=== PATIENT | female | born 1930 | race Caucasian/White ===

== ENCOUNTER 2017-03-20 16:20 | Inpatient (IN) | payer OTHER ==
[~2017-03-20] VITALS: Ht 165.1 cm; Wt 55.8 kg
[2017-03-20 16:20] VITALS: BP_SYST 111
[~2017-03-20 16:20] MED LIST: ACET-2165 PO; ASPI325T2 PO; DONE10TA44 PO; FAMO40TA7 PO; LISI-217 PO; MAGN400O4 PO; TELM80TA4 PO; [UNRECOGNIZED DRUG - CODE] PO
[2017-03-20] MEDS ORDERED: NACL 0.9% 1,000 ML IV ONE ×2 (16:30→18:15)
[2017-03-20] MEDS ORDERED: METOCLOPRAMIDE HCL 10 MG/2 ML VIAL IVP ONE (16:30)
[2017-03-20 17:47] LABS: BASOPHILS % (AUTO) 0.1 % (0.0-2.0); EOSINOPHILS % (AUTO) 0.2 % (0.0-4.0); HEMATOCRIT 31.8 % (36-48); HEMOGLOBIN 10.7 g/dL (12.0-16.0); LYMPHOCYTES # (AUTO) 1.3 K/uL (1.0-5.5); LYMPHOCYTES % (AUTO) 6.7 % (20.5-51.5); MEAN CORPUSCULAR HEMOGLOBIN 32 pg (27-31); MEAN CORPUSCULAR HGB CONC 34 % (32-36); MEAN CORPUSCULAR VOLUME 94 fL (79.0-98.0); MONOCYTES # (AUTO) 0.2 K/uL (0.0-1.0); MONOCYTES % (AUTO) 1.2 % (1.7-9.3); NEUTROPHILS # (AUTO) 18.1 K/uL (1.8-7.7); NEUTROPHILS % (AUTO) 91.8 % (40.0-70.0); PLATELET COUNT (AUTO) 256 K/uL (130-430); RED BLOOD CELL COUNT(AUTO) 3.37 MIL/uL (4.2-6.2); RED CELL DISTRIBUTION WIDTH 12.4 % (9.0-15.0); WHITE BLOOD COUNT (AUTO) 19.6 K/uL (4.8-10.8)
[2017-03-20 17:58] LABS: ANION GAP 8 (5-15); CALCIUM 8.3 mg/dL (8.4-11.0); CHLORIDE 112 mmol/L (98-107); CREATININE 1.32 mg/dL (0.55-1.30); GLUCOSE 163 mg/dL (70-99); SODIUM SERUM 143 mmol/L (136-145); UREA NITROGEN, BLOOD 32 mg/dL (8-21)
[2017-03-20 18:03] LABS: ALANINE AMINOTRANSFERASE 56 U/L (12-78); ASPARTATE AMINOTRANSFERASE 124 U/L (10-37); TOTAL BILIRUBIN 0.7 mg/dL (0.0-1.0)
[2017-03-20] MEDS ORDERED: PIPERACILLIN/TAZO 3.375 GM in NS 50 ML IV ONE (18:15)
[2017-03-20] MEDS ORDERED: VANCOMYCIN HCL 1,000 MG in NS 250 ML IV ONE (18:15)
[2017-03-20] MEDS ORDERED: PIPERACILLIN/TAZOBACTAM 3.375 GM/VIAL (ZOSYN) IV ONE ×2 (18:39→21:54)
[2017-03-20] MEDS ORDERED: VANCOMYCIN HCL 1000 MG/VIAL IV ONE (18:39)
[2017-03-20 18:42] LABS: BILIRUBIN,URINE NEGATIVE (NEGATIVE); BLOOD, URINE 2+ (NEGATIVE); CLARITY/URINE CLOUDY (CLEAR); COLOR,URINE YELLOW (YELLOW); GLUCOSE,URINE NEGATIVE (NEGATIVE); KETONES,URINE NEGATIVE (NEGATIVE); LEUKOCYTE ESTERASE ,URINE 3+ (NEGATIVE); NITRITE, URINE NEGATIVE (NEGATIVE); PH,URINE 5.5 (5.0-8.0); PROTEIN URINE 2+ (NEGATIVE); UROBILINOGEN,URINE 0.2 (0.2-1.0)
[2017-03-20 19:07] LABS: BACTERIA,URINE MANY /HPF (None Seen); WBC,URINE >100 /HPF (0-3)
[2017-03-20 19:08] LABS: MUCUS,URINE None Seen /LPF (None Seen)
[2017-03-20 19:47] VITALS: BP_SYST 155
[2017-03-20] MEDS ORDERED: ACETAMINOPHEN 325 MG TABLET PO PRN (21:00)
[2017-03-20] MEDS: PIPERACILLIN/TAZO 3.375/DEX-IS 50 ML IV SCH (21:00)
[2017-03-20] MEDS: DONEPEZIL HCL 5 MG TABLET (ARICEPT) PO SCH (22:00)
[2017-03-20] MEDS: FAMOTIDINE 20 MG TABLET PO SCH (22:00)
[2017-03-20] MEDS: ASPIRIN 325 MG TABLET PO SCH (22:00)
[2017-03-20] MEDS: NACL 0.9% 1,000 ML IV SCH (22:37)
[2017-03-21] VITALS (7 sets, daily range): BP systolic 97–169
[2017-03-21] MEDS: PIPERACILLIN/TAZO 3.375/DEX-IS 50 ML IV SCH ×4 (00:12→18:02)
[2017-03-21] MEDS ORDERED: PIPERACILLIN/TAZOBACTAM 3.375 GM/VIAL (ZOSYN) IV ONE (01:57)
[2017-03-21] MEDS ORDERED: TELMISARTAN 80 MG TABLET PO SCH (09:00)
[2017-03-21] MEDS: LOSARTAN POTASSIUM 50 MG TABLET (COZAAR) PO SCH (09:00)
[2017-03-21] MEDS: NACL 0.9% 1,000 ML IV SCH (11:18)
[2017-03-21] MEDS: DONEPEZIL HCL 5 MG TABLET (ARICEPT) PO SCH (21:16)
[2017-03-21] MEDS: FAMOTIDINE 20 MG TABLET PO SCH (21:16)
[2017-03-21] MEDS: ASPIRIN 325 MG TABLET PO SCH (21:16)
[2017-03-22] VITALS (7 sets, daily range): BP systolic 142–185
[2017-03-22] MEDS: PIPERACILLIN/TAZO 3.375/DEX-IS 50 ML IV SCH ×4 (01:15→18:33)
[2017-03-22] MEDS: NACL 0.9% 1,000 ML IV SCH ×2 (01:36→06:51)
[2017-03-22 06:28] LABS: BASOPHILS % (AUTO) 0.3 % (0.0-2.0); EOSINOPHILS # (AUTO) 0.2 K/uL (0.0-0.4); EOSINOPHILS % (AUTO) 2.1 % (0.0-4.0); HEMATOCRIT 30.4 % (36-48); HEMOGLOBIN 10.1 g/dL (12.0-16.0); LYMPHOCYTES # (AUTO) 1.5 K/uL (1.0-5.5); LYMPHOCYTES % (AUTO) 15.3 % (20.5-51.5); MEAN CORPUSCULAR HEMOGLOBIN 32 pg (27-31); MEAN CORPUSCULAR HGB CONC 33 % (32-36); MEAN CORPUSCULAR VOLUME 95 fL (79.0-98.0); MONOCYTES # (AUTO) 0.7 K/uL (0.0-1.0); MONOCYTES % (AUTO) 6.9 % (1.7-9.3); NEUTROPHILS # (AUTO) 7.7 K/uL (1.8-7.7); NEUTROPHILS % (AUTO) 75.4 % (40.0-70.0); PLATELET COUNT (AUTO) 187 K/uL (130-430); RED BLOOD CELL COUNT(AUTO) 3.19 MIL/uL (4.2-6.2); RED CELL DISTRIBUTION WIDTH 12.5 % (9.0-15.0); WHITE BLOOD COUNT (AUTO) 10.1 K/uL (4.8-10.8)
[2017-03-22 06:43] LABS: ALANINE AMINOTRANSFERASE 335 U/L (12-78); ALBUMIN 2.5 g/dL (3.4-4.8); ANION GAP 9 (5-15); ASPARTATE AMINOTRANSFERASE 257 U/L (10-37); CALCIUM 7.4 mg/dL (8.4-11.0); CHLORIDE 110 mmol/L (98-107); CREATININE 1.15 mg/dL (0.55-1.30); GLUCOSE 93 mg/dL (70-99); SODIUM SERUM 144 mmol/L (136-145); UREA NITROGEN, BLOOD 15 mg/dL (8-21)
[2017-03-22 06:49] LABS: POTASSIUM 2.9 mmol/L (3.5-5.1)
[2017-03-22] MEDS ORDERED: POTASSIUM CHLORIDE 40 MEQ in NS 250 ML IV ONE (07:15)
[2017-03-22] MEDS: LOSARTAN POTASSIUM 50 MG TABLET (COZAAR) PO SCH (12:06)
[2017-03-22] MEDS: DONEPEZIL HCL 5 MG TABLET (ARICEPT) PO SCH (21:23)
[2017-03-22] MEDS: FAMOTIDINE 20 MG TABLET PO SCH (21:23)
[2017-03-22] MEDS: ASPIRIN 325 MG TABLET PO SCH (21:23)
[2017-03-22] MEDS ORDERED: ONDANSETRON HCL 4 MG/2 ML VIAL IVP PRN (21:30)
[2017-03-23] VITALS (8 sets, daily range): BP systolic 137–180
[2017-03-23] MEDS: cloNIDine HCL 0.1 MG TABLET PO PRN ×3 (00:08→20:18)
[2017-03-23] MEDS: PIPERACILLIN/TAZO 3.375/DEX-IS 50 ML IV SCH ×3 (00:16→11:45)
[2017-03-23] MEDS: NACL 0.9% 1,000 ML IV SCH ×2 (00:38→16:37)
[2017-03-23] MEDS: LOSARTAN POTASSIUM 50 MG TABLET (COZAAR) PO SCH (08:32)
[2017-03-23] MEDS ORDERED: GLUCOSE 15 GM GEL (in 37.5 GM TUBE) PO PRN ×2 (11:30)
[2017-03-23] MEDS ORDERED: DEXTROSE 50%-WATER 50 ML DISP.SYRIN IVP PRN ×2 (11:30)
[2017-03-23 12:04] LABS: BASOPHILS # (AUTO) 0.2 K/uL (0.0-0.2); BASOPHILS % (AUTO) 1.4 % (0.0-2.0); EOSINOPHILS # (AUTO) 0.2 K/uL (0.0-0.4); EOSINOPHILS % (AUTO) 1.6 % (0.0-4.0); HEMATOCRIT 31.5 % (36-48); HEMOGLOBIN 10.3 g/dL (12.0-16.0); LYMPHOCYTES # (AUTO) 1.5 K/uL (1.0-5.5); LYMPHOCYTES % (AUTO) 13.1 % (20.5-51.5); MEAN CORPUSCULAR HEMOGLOBIN 31 pg (27-31); MEAN CORPUSCULAR HGB CONC 33 % (32-36); MEAN CORPUSCULAR VOLUME 96 fL (79.0-98.0); MONOCYTES # (AUTO) 0.7 K/uL (0.0-1.0); MONOCYTES % (AUTO) 5.9 % (1.7-9.3); NEUTROPHILS # (AUTO) 8.9 K/uL (1.8-7.7); PLATELET COUNT (AUTO) 200 K/uL (130-430); RED CELL DISTRIBUTION WIDTH 12.6 % (9.0-15.0); WHITE BLOOD COUNT (AUTO) 11.5 K/uL (4.8-10.8)
[2017-03-23] MEDS: cefTRIAXone 1 GM in D5W 50 ML IV SCH (18:14)
[2017-03-23] MEDS: DONEPEZIL HCL 5 MG TABLET (ARICEPT) PO SCH (20:16)
[2017-03-23] MEDS: FAMOTIDINE 20 MG TABLET PO SCH (20:16)
[2017-03-23] MEDS: ASPIRIN 325 MG TABLET PO SCH (20:16)
[2017-03-23] MEDS: metroNIDAZOLE 500 mg/NS 100 ML IV SCH (21:30)
[2017-03-23] MEDS ORDERED: metroNIDAZOLE 500 mg/NS 200 ML IV ONE (21:30)
[2017-03-24 04:20] VITALS: BP_SYST 140
[2017-03-24] MEDS: metroNIDAZOLE 500 mg/NS 100 ML IV SCH ×3 (06:01→21:27)
[2017-03-24 07:14] LABS: BASOPHILS # (AUTO) 0.1 K/uL (0.0-0.2); BASOPHILS % (AUTO) 0.6 % (0.0-2.0); EOSINOPHILS # (AUTO) 0.4 K/uL (0.0-0.4); EOSINOPHILS % (AUTO) 5.1 % (0.0-4.0); HEMATOCRIT 28.2 % (36-48); HEMOGLOBIN 9.5 g/dL (12.0-16.0); LYMPHOCYTES # (AUTO) 1.4 K/uL (1.0-5.5); LYMPHOCYTES % (AUTO) 16.8 % (20.5-51.5); MEAN CORPUSCULAR HEMOGLOBIN 32 pg (27-31); MEAN CORPUSCULAR HGB CONC 34 % (32-36); MEAN CORPUSCULAR VOLUME 95 fL (79.0-98.0); MONOCYTES # (AUTO) 0.6 K/uL (0.0-1.0); MONOCYTES % (AUTO) 7.4 % (1.7-9.3); NEUTROPHILS # (AUTO) 6.1 K/uL (1.8-7.7); NEUTROPHILS % (AUTO) 70.1 % (40.0-70.0); PLATELET COUNT (AUTO) 199 K/uL (130-430); RED BLOOD CELL COUNT(AUTO) 2.97 MIL/uL (4.2-6.2); RED CELL DISTRIBUTION WIDTH 12.3 % (9.0-15.0); WHITE BLOOD COUNT (AUTO) 8.6 K/uL (4.8-10.8)
[2017-03-24 07:16] LABS: ALANINE AMINOTRANSFERASE 127 U/L (12-78); ALBUMIN 2.2 g/dL (3.4-4.8); ANION GAP 7 (5-15); ASPARTATE AMINOTRANSFERASE 35 U/L (10-37); CALCIUM 7.6 mg/dL (8.4-11.0); CHLORIDE 117 mmol/L (98-107); CREATININE 0.93 mg/dL (0.55-1.30); GLUCOSE 92 mg/dL (70-99); SODIUM SERUM 146 mmol/L (136-145); TOTAL BILIRUBIN 0.4 mg/dL (0.0-1.0); UREA NITROGEN, BLOOD 7 mg/dL (8-21)
[2017-03-24 07:46] VITALS: BP_SYST 162
[2017-03-24] MEDS: LOSARTAN POTASSIUM 50 MG TABLET (COZAAR) PO SCH (08:03)
[2017-03-24 08:10] LABS: POTASSIUM 2.7 mmol/L (3.5-5.1)
[2017-03-24] MEDS: NACL 0.9% 1,000 ML IV SCH (09:40)
[2017-03-24] MEDS ORDERED: POTASSIUM CHLORIDE 20 MEQ TAB.PRT.SR PO ONE (10:15)
[2017-03-24] MEDS: 0.45% NACL 1,000 ML IV SCH (11:20)
[2017-03-24 12:27] VITALS: BP_SYST 179
[2017-03-24] MEDS: IPRATROPIUM/ALBUTEROL SULFATE 3 ML AMPUL.NEB INH SCH ×3 (15:27→23:13)
[2017-03-24 16:12] VITALS: BP_SYST 179
[2017-03-24 16:25] VITALS: BP_SYST 173
[2017-03-24] MEDS: cefTRIAXone 1 GM in D5W 50 ML IV SCH (17:46)
[2017-03-24 20:00] VITALS: BP_SYST 164
[2017-03-24] MEDS: ASPIRIN 325 MG TABLET PO SCH (20:31)
[2017-03-24] MEDS: DONEPEZIL HCL 5 MG TABLET (ARICEPT) PO SCH (20:31)
[2017-03-24] MEDS: FAMOTIDINE 20 MG TABLET PO SCH (20:31)
[2017-03-24] MEDS: cloNIDine HCL 0.1 MG TABLET PO PRN (20:31)
[2017-03-24] MEDS: INSULIN REGULAR, HUMAN 100 UNITS/ML, 10 ML VIAL (novoLIN R) SUBCUT PRN (20:39)
[2017-03-25 01:02] VITALS: BP_SYST 110
[2017-03-25] MEDS: IPRATROPIUM/ALBUTEROL SULFATE 3 ML AMPUL.NEB INH SCH ×4 (03:00→14:25)
[2017-03-25 04:36] VITALS: BP_SYST 136
[2017-03-25] MEDS: metroNIDAZOLE 500 mg/NS 100 ML IV SCH ×2 (06:33→14:10)
[2017-03-25 06:47] LABS: BASOPHILS % (AUTO) 0.4 % (0.0-2.0); EOSINOPHILS # (AUTO) 0.2 K/uL (0.0-0.4); EOSINOPHILS % (AUTO) 1.6 % (0.0-4.0); HEMATOCRIT 25.8 % (36-48); HEMOGLOBIN 8.8 g/dL (12.0-16.0); LYMPHOCYTES # (AUTO) 1.8 K/uL (1.0-5.5); LYMPHOCYTES % (AUTO) 18.3 % (20.5-51.5); MEAN CORPUSCULAR HEMOGLOBIN 32 pg (27-31); MEAN CORPUSCULAR HGB CONC 34 % (32-36); MEAN CORPUSCULAR VOLUME 95 fL (79.0-98.0); MONOCYTES # (AUTO) 0.8 K/uL (0.0-1.0); MONOCYTES % (AUTO) 7.9 % (1.7-9.3); NEUTROPHILS # (AUTO) 6.9 K/uL (1.8-7.7); NEUTROPHILS % (AUTO) 71.8 % (40.0-70.0); PLATELET COUNT (AUTO) 211 K/uL (130-430); RED BLOOD CELL COUNT(AUTO) 2.73 MIL/uL (4.2-6.2); RED CELL DISTRIBUTION WIDTH 12.5 % (9.0-15.0); WHITE BLOOD COUNT (AUTO) 9.7 K/uL (4.8-10.8)
[2017-03-25 07:00] LABS: ALANINE AMINOTRANSFERASE 91 U/L (12-78); ALBUMIN 2.2 g/dL (3.4-4.8); ANION GAP 8 (5-15); ASPARTATE AMINOTRANSFERASE 21 U/L (10-37); CALCIUM 7.7 mg/dL (8.4-11.0); CHLORIDE 112 mmol/L (98-107); CREATININE 0.85 mg/dL (0.55-1.30); GLUCOSE 128 mg/dL (70-99); SODIUM SERUM 142 mmol/L (136-145); TOTAL BILIRUBIN 0.3 mg/dL (0.0-1.0); UREA NITROGEN, BLOOD 10 mg/dL (8-21)
[2017-03-25 07:16] LABS: POTASSIUM 2.7 mmol/L (3.5-5.1)
[2017-03-25] MEDS ORDERED: POTASSIUM CHLORIDE 60 MEQ in NS 500 ML IV ONE (08:15)
[2017-03-25 08:30] VITALS: BP_SYST 163
[2017-03-25] MEDS ORDERED: amLODIPine BESYLATE 5 MG TABLET PO SCH (09:00)
[2017-03-25] MEDS: LOSARTAN POTASSIUM 50 MG TABLET (COZAAR) PO SCH (10:13)
[2017-03-25] MEDS: 0.45% NACL 1,000 ML IV SCH (10:15)
[2017-03-25 11:35] VITALS: BP_SYST 144
[2017-03-25] MEDS: INSULIN REGULAR, HUMAN 100 UNITS/ML, 10 ML VIAL (novoLIN R) SUBCUT PRN (12:16)
[2017-03-25] MEDS: cloNIDine HCL 0.1 MG TABLET PO PRN (14:18)
[2017-03-25 15:41] VITALS: BP_SYST 147
[2017-03-25 16:22] VITALS: BP_SYST 147
[2017-03-25 17:31] LABS: POTASSIUM 3.9 mmol/L (3.5-5.1)
== END 2017-03-25 18:10 | DRG 871 ==
LOC: SED 16:20 → SMU 18:27
PROVIDERS: ADMIT Internal Medicine Hospice and Palliative Medicine; ATTEND Internal Medicine Hospice and Palliative Medicine
DX: A41.9 Sepsis, unspecified organism (principal); E43 Unspecified severe protein-calorie malnutrition; N17.9 Acute kidney failure, unspecified; J90 Pleural effusion, not elsewhere classified; N39.0 Urinary tract infection, site not specified; F01.50 Vascular dementia, unspecified severity, without behavioral disturbance, psychotic disturbance, mood disturbance, and anxiety; E86.0 Dehydration; I10 Essential (primary) hypertension; E11.9 Type 2 diabetes mellitus without complications; D64.9 Anemia, unspecified; K80.20 Calculus of gallbladder without cholecystitis without obstruction; E87.6 Hypokalemia; I25.10 Atherosclerotic heart disease of native coronary artery without angina pectoris; Z86.73 Personal history of transient ischemic attack (TIA), and cerebral infarction without residual deficits; Z87.440 Personal history of urinary (tract) infections; Z95.5 Presence of coronary angioplasty implant and graft; Z85.828 Personal history of other malignant neoplasm of skin; Z90.49 Acquired absence of other specified parts of digestive tract; Z87.442 Personal history of urinary calculi; Z68.20 Body mass index [BMI] 20.0-20.9, adult
CPT/HCPCS: 36415; 71010; 76700-TC; 78226; 80053; 81000-TC; 82962; 83605; 83735-TC; 84132-TC; 84484; 85025; 87040-TC; 87081; 87086; 87186-TC; 93005; 94640; 94760; 96361; 96365; 96366; 96367; 96375; 97116-GP; 99285; A9537; J0696; J1815; J2543; J2765; J3370; J3480; J3490; J7030; J7040; J7050; J7060

== ENCOUNTER 2017-04-05 18:08 | Inpatient (IN) | payer OTHER ==
[~2017-04-05] VITALS: Ht 167.6 cm; Wt 53.1 kg
[2017-04-05 18:08] VITALS: BP_SYST 142
[2017-04-05 19:19] LABS: BASOPHILS % (AUTO) 0.4 % (0.0-2.0); EOSINOPHILS # (AUTO) 0.4 K/uL (0.0-0.4); EOSINOPHILS % (AUTO) 4.4 % (0.0-4.0); HEMATOCRIT 30.4 % (36-48); HEMOGLOBIN 10.2 g/dL (12.0-16.0); LYMPHOCYTES % (AUTO) 25.1 % (20.5-51.5); MEAN CORPUSCULAR HEMOGLOBIN 32 pg (27-31); MEAN CORPUSCULAR HGB CONC 34 % (32-36); MEAN CORPUSCULAR VOLUME 96 fL (79.0-98.0); MONOCYTES # (AUTO) 0.7 K/uL (0.0-1.0); MONOCYTES % (AUTO) 8.2 % (1.7-9.3); NEUTROPHILS % (AUTO) 61.9 % (40.0-70.0); PLATELET COUNT (AUTO) 465 K/uL (130-430); RED BLOOD CELL COUNT(AUTO) 3.17 MIL/uL (4.2-6.2); RED CELL DISTRIBUTION WIDTH 14.1 % (9.0-15.0); WHITE BLOOD COUNT (AUTO) 8.1 K/uL (4.8-10.8)
[2017-04-05 19:24] LABS: PROTHROMBIN TIME 11.3 SECS (9.5-12.5)
[2017-04-05 19:30] LABS: ALANINE AMINOTRANSFERASE 16 U/L (12-78); ALBUMIN 2.6 g/dL (3.4-4.8); ANION GAP 6 (5-15); ASPARTATE AMINOTRANSFERASE 17 U/L (10-37); CALCIUM 8.7 mg/dL (8.4-11.0); CHLORIDE 99 mmol/L (98-107); CREATININE 1.02 mg/dL (0.55-1.30); GLUCOSE 145 mg/dL (70-99); LIPASE 85 U/L (73-393); SODIUM SERUM 140 mmol/L (136-145); TOTAL BILIRUBIN 0.3 mg/dL (0.0-1.0); UREA NITROGEN, BLOOD 9 mg/dL (8-21)
[2017-04-05 19:33] LABS: POTASSIUM 2.5 mmol/L (3.5-5.1)
[2017-04-05] MEDS ORDERED: NS 500 ML IV ONE (19:45)
[2017-04-05] MEDS ORDERED: POTASSIUM CHLORIDE 20 MEQ/PKT PACKET PO ONE (19:45)
[2017-04-05] MEDS ORDERED: SERT50TA12 PO (19:46)
[2017-04-05] MEDS ORDERED: THYR15TA PO (19:46)
[2017-04-05] MEDS ORDERED: AMLO5TAB4 PO (19:46)
[2017-04-05 20:28] LABS: BILIRUBIN,URINE NEGATIVE (NEGATIVE); CLARITY/URINE CLEAR (CLEAR); COLOR,URINE YELLOW (YELLOW); GLUCOSE,URINE NEGATIVE (NEGATIVE); KETONES,URINE TRACE (NEGATIVE); NITRITE, URINE NEGATIVE (NEGATIVE); PH,URINE 5.5 (5.0-8.0); PROTEIN URINE TRACE (NEGATIVE); UROBILINOGEN,URINE 0.2 (0.2-1.0)
[2017-04-05 20:36] LABS: BLOOD, URINE TRACE (NEGATIVE); LEUKOCYTE ESTERASE ,URINE TRACE (NEGATIVE)
[2017-04-05 20:38] LABS: BACTERIA,URINE FEW /HPF (None Seen); HYALINE CASTS, URINE 0-10 /LPF (None Seen); MUCUS,URINE 1+ /LPF (None Seen); RBC,URINE 0-3 /HPF (0-3)
[2017-04-05] MEDS ORDERED: ACETAMINOPHEN 325 MG TABLET PO PRN (22:00)
[2017-04-05] MEDS ORDERED: PIPERACILLIN/TAZO 3.375 GM in NS 50 ML IV ONE (22:00)
[2017-04-05] MEDS ORDERED: VANCOMYCIN HCL 1,000 MG in NS 250 ML IV ONE (22:00)
[2017-04-05] MEDS ORDERED: VANCOMYCIN HCL 1000 MG/VIAL IV ONE (22:25)
[2017-04-05] MEDS ORDERED: PIPERACILLIN/TAZOBACTAM 3.375 GM/VIAL (ZOSYN) IV ONE (22:25)
[2017-04-05] MEDS ORDERED: cefTRIAXone 1 GM in D5W 50 ML IV SCH (23:00)
[2017-04-05] MEDS ORDERED: AZITHROMYCIN 500 MG in NS 250 ML IV SCH (23:00)
[2017-04-05 23:15] VITALS: BP_SYST 144
[2017-04-05] MEDS ORDERED: FLU VACC QS 2017-18(36MOS+)/PF 0.5 ML/SYR SYRINGE I.M. PRN (23:30)
[2017-04-05] MEDS ORDERED: cefTRIAXone 1 GM VIAL ONE (23:40)
[2017-04-05] MEDS ORDERED: AZITHROMYCIN 500 MG/VIAL (ZITHROMAX) IV ONE (23:41)
[2017-04-06 00:19] VITALS: BP_SYST 144
[2017-04-06 04:09] VITALS: BP_SYST 148
[2017-04-06 06:54] LABS: BASOPHILS % (AUTO) 0.6 % (0.0-2.0); EOSINOPHILS # (AUTO) 0.4 K/uL (0.0-0.4); EOSINOPHILS % (AUTO) 6.1 % (0.0-4.0); HEMATOCRIT 26.3 % (36-48); HEMOGLOBIN 8.7 g/dL (12.0-16.0); LYMPHOCYTES # (AUTO) 1.1 K/uL (1.0-5.5); LYMPHOCYTES % (AUTO) 16.6 % (20.5-51.5); MEAN CORPUSCULAR HEMOGLOBIN 31 pg (27-31); MEAN CORPUSCULAR HGB CONC 33 % (32-36); MEAN CORPUSCULAR VOLUME 95 fL (79.0-98.0); MONOCYTES # (AUTO) 0.4 K/uL (0.0-1.0); NEUTROPHILS # (AUTO) 4.8 K/uL (1.8-7.7); NEUTROPHILS % (AUTO) 70.7 % (40.0-70.0); PLATELET COUNT (AUTO) 401 K/uL (130-430); RED BLOOD CELL COUNT(AUTO) 2.78 MIL/uL (4.2-6.2); RED CELL DISTRIBUTION WIDTH 14.5 % (9.0-15.0); WHITE BLOOD COUNT (AUTO) 6.7 K/uL (4.8-10.8)
[2017-04-06 06:57] LABS: ALANINE AMINOTRANSFERASE 10 U/L (12-78); ALBUMIN 2.1 g/dL (3.4-4.8); ANION GAP 4 (5-15); ASPARTATE AMINOTRANSFERASE 15 U/L (10-37); CALCIUM 7.9 mg/dL (8.4-11.0); CHLORIDE 104 mmol/L (98-107); GLUCOSE 125 mg/dL (70-99); SODIUM SERUM 141 mmol/L (136-145); TOTAL BILIRUBIN 0.2 mg/dL (0.0-1.0); UREA NITROGEN, BLOOD 8 mg/dL (8-21)
[2017-04-06 07:03] LABS: POTASSIUM 2.6 mmol/L (3.5-5.1)
[2017-04-06] MEDS: ALBUTEROL SULFATE 0.083% 2.5 MG/3 ML VIAL.NEB INH SCH ×3 (07:15→19:41)
[2017-04-06 07:52] VITALS: BP_SYST 142
[2017-04-06 11:33] VITALS: BP_SYST 132
[2017-04-06] MEDS ORDERED: POTASSIUM CHLORIDE 20 MEQ TAB.PRT.SR PO ONE (11:45)
[2017-04-06] MEDS ORDERED: POTASSIUM CHLORIDE 40 MEQ in NS 250 ML IV ONE (11:45)
[2017-04-06 15:41] VITALS: BP_SYST 138
[2017-04-06 20:00] VITALS: BP_SYST 147
[2017-04-06] MEDS ORDERED: LEVOFLOXACIN 500 MG/D5W 100 ML IV ONE (22:03)
[2017-04-06] MEDS: LEVOFLOXACIN 500 MG/D5W 100 ML IV SCH (22:04)
[2017-04-07] VITALS (7 sets, daily range): BP systolic 145–164
[2017-04-07] MEDS: ALBUTEROL SULFATE 0.083% 2.5 MG/3 ML VIAL.NEB INH SCH ×4 (01:45→20:12)
[2017-04-07 07:15] LABS: ALANINE AMINOTRANSFERASE 12 U/L (12-78); ANION GAP 3 (5-15); ASPARTATE AMINOTRANSFERASE 19 U/L (10-37); CALCIUM 7.7 mg/dL (8.4-11.0); CHLORIDE 107 mmol/L (98-107); CREATININE 0.69 mg/dL (0.55-1.30); GLUCOSE 119 mg/dL (70-99); POTASSIUM 4.1 mmol/L (3.5-5.1); SODIUM SERUM 143 mmol/L (136-145); TOTAL BILIRUBIN 0.2 mg/dL (0.0-1.0); UREA NITROGEN, BLOOD 6 mg/dL (8-21)
[2017-04-07 07:32] LABS: BASOPHILS % (AUTO) 0.7 % (0.0-2.0); EOSINOPHILS # (AUTO) 0.6 K/uL (0.0-0.4); EOSINOPHILS % (AUTO) 10.3 % (0.0-4.0); HEMATOCRIT 26.8 % (36-48); HEMOGLOBIN 8.5 g/dL (12.0-16.0); LYMPHOCYTES # (AUTO) 1.5 K/uL (1.0-5.5); LYMPHOCYTES % (AUTO) 24.5 % (20.5-51.5); MEAN CORPUSCULAR HEMOGLOBIN 31 pg (27-31); MEAN CORPUSCULAR HGB CONC 32 % (32-36); MEAN CORPUSCULAR VOLUME 96 fL (79.0-98.0); MONOCYTES # (AUTO) 0.6 K/uL (0.0-1.0); MONOCYTES % (AUTO) 9.3 % (1.7-9.3); NEUTROPHILS # (AUTO) 3.5 K/uL (1.8-7.7); NEUTROPHILS % (AUTO) 55.2 % (40.0-70.0); PLATELET COUNT (AUTO) 383 K/uL (130-430); RED BLOOD CELL COUNT(AUTO) 2.79 MIL/uL (4.2-6.2); RED CELL DISTRIBUTION WIDTH 14.6 % (9.0-15.0); WHITE BLOOD COUNT (AUTO) 6.2 K/uL (4.8-10.8)
[2017-04-07] MEDS ORDERED: LEVO750T45 PO (11:18)
[2017-04-07] MEDS ORDERED: ALBMDI INH (11:19)
[2017-04-07] MEDS ORDERED: LEVO500T20 PO (11:21)
[2017-04-07] MEDS: cloNIDine HCL 0.1 MG TABLET PO PRN (20:31)
[2017-04-07] MEDS: LEVOFLOXACIN 500 MG/D5W 100 ML IV SCH (20:31)
[2017-04-08 00:18] VITALS: BP_SYST 103
[2017-04-08] MEDS: ALBUTEROL SULFATE 0.083% 2.5 MG/3 ML VIAL.NEB INH SCH ×4 (00:57→20:37)
[2017-04-08 04:25] VITALS: BP_SYST 131
[2017-04-08 06:41] LABS: ALANINE AMINOTRANSFERASE 12 U/L (12-78); ANION GAP 3 (5-15); ASPARTATE AMINOTRANSFERASE 19 U/L (10-37); CALCIUM 8.3 mg/dL (8.4-11.0); CHLORIDE 104 mmol/L (98-107); CREATININE 0.67 mg/dL (0.55-1.30); GLUCOSE 112 mg/dL (70-99); POTASSIUM 4.3 mmol/L (3.5-5.1); SODIUM SERUM 139 mmol/L (136-145); TOTAL BILIRUBIN 0.3 mg/dL (0.0-1.0); UREA NITROGEN, BLOOD 6 mg/dL (8-21)
[2017-04-08 07:02] LABS: BASOPHILS # (AUTO) 0.1 K/uL (0.0-0.2); EOSINOPHILS # (AUTO) 0.5 K/uL (0.0-0.4); EOSINOPHILS % (AUTO) 8.7 % (0.0-4.0); HEMATOCRIT 26.1 % (36-48); HEMOGLOBIN 8.7 g/dL (12.0-16.0); LYMPHOCYTES # (AUTO) 1.3 K/uL (1.0-5.5); LYMPHOCYTES % (AUTO) 23.5 % (20.5-51.5); MEAN CORPUSCULAR HEMOGLOBIN 32 pg (27-31); MEAN CORPUSCULAR HGB CONC 33 % (32-36); MEAN CORPUSCULAR VOLUME 96 fL (79.0-98.0); MONOCYTES # (AUTO) 0.5 K/uL (0.0-1.0); MONOCYTES % (AUTO) 8.5 % (1.7-9.3); NEUTROPHILS % (AUTO) 58.3 % (40.0-70.0); PLATELET COUNT (AUTO) 398 K/uL (130-430); RED BLOOD CELL COUNT(AUTO) 2.74 MIL/uL (4.2-6.2); RED CELL DISTRIBUTION WIDTH 14.7 % (9.0-15.0); WHITE BLOOD COUNT (AUTO) 5.4 K/uL (4.8-10.8)
[2017-04-08 09:08] VITALS: BP_SYST 152
[2017-04-08 12:56] VITALS: BP_SYST 140
[2017-04-08 15:35] VITALS: BP_SYST 167
[2017-04-08] MEDS: PANTOPRAZOLE SODIUM 40 MG TAB PO SCH (17:05)
[2017-04-08] MEDS: cloNIDine HCL 0.1 MG TABLET PO PRN (17:06)
[2017-04-08 19:30] VITALS: BP_SYST 125
[2017-04-09] VITALS (7 sets, daily range): BP systolic 120–158
[2017-04-09] MEDS: LEVOFLOXACIN 500 MG/D5W 100 ML IV SCH ×2 (00:58→22:33)
[2017-04-09] MEDS: ALBUTEROL SULFATE 0.083% 2.5 MG/3 ML VIAL.NEB INH SCH ×4 (01:00→19:00)
[2017-04-09 08:01] LABS: INR 1.1 (0.8-1.2); PROTHROMBIN TIME 11.4 SECS (9.5-12.5)
[2017-04-09] MEDS: PANTOPRAZOLE SODIUM 40 MG TAB PO SCH (08:25)
[2017-04-09] MEDS: MIDAZOLAM HCL 5 MG/5 ML VIAL ONE ×2 (13:37→15:14)
[2017-04-09] MEDS ORDERED: fentaNYL CITRATE/PF 100 MCG/2 ML AMP ONE (13:38)
[2017-04-10] MEDS: ALBUTEROL SULFATE 0.083% 2.5 MG/3 ML VIAL.NEB INH SCH ×4 (01:00→20:09)
[2017-04-10 03:26] VITALS: BP_SYST 160
[2017-04-10] MEDS: PANTOPRAZOLE SODIUM 40 MG TAB PO SCH (08:00)
[2017-04-10 08:18] VITALS: BP_SYST 153
[2017-04-10] MEDS: D5NS 1,000 ML IV SCH (08:52)
[2017-04-10 11:28] VITALS: BP_SYST 151
[2017-04-10 16:12] VITALS: BP_SYST 155
[2017-04-10 20:00] VITALS: BP_SYST 166
[2017-04-10] MEDS: LEVOFLOXACIN 500 MG/D5W 100 ML IV SCH (20:32)
[2017-04-11] VITALS (7 sets, daily range): BP systolic 140–166
[2017-04-11] MEDS: ALBUTEROL SULFATE 0.083% 2.5 MG/3 ML VIAL.NEB INH SCH ×4 (01:00→21:22)
[2017-04-11] MEDS: D5NS 1,000 ML IV SCH ×2 (01:57→15:12)
[2017-04-11] MEDS: PANTOPRAZOLE SODIUM 40 MG TAB PO SCH (09:09)
[2017-04-11 10:10] LABS: BASOPHILS % (AUTO) 0.8 % (0.0-2.0); EOSINOPHILS # (AUTO) 0.3 K/uL (0.0-0.4); EOSINOPHILS % (AUTO) 5.3 % (0.0-4.0); HEMATOCRIT 27.4 % (36-48); HEMOGLOBIN 8.8 g/dL (12.0-16.0); LYMPHOCYTES # (AUTO) 1.1 K/uL (1.0-5.5); LYMPHOCYTES % (AUTO) 21.7 % (20.5-51.5); MEAN CORPUSCULAR HEMOGLOBIN 31 pg (27-31); MEAN CORPUSCULAR HGB CONC 32 % (32-36); MEAN CORPUSCULAR VOLUME 96 fL (79.0-98.0); MONOCYTES # (AUTO) 0.5 K/uL (0.0-1.0); MONOCYTES % (AUTO) 10.5 % (1.7-9.3); NEUTROPHILS # (AUTO) 3.2 K/uL (1.8-7.7); NEUTROPHILS % (AUTO) 61.7 % (40.0-70.0); PLATELET COUNT (AUTO) 349 K/uL (130-430); RED BLOOD CELL COUNT(AUTO) 2.86 MIL/uL (4.2-6.2); RED CELL DISTRIBUTION WIDTH 14.4 % (9.0-15.0); WHITE BLOOD COUNT (AUTO) 5.1 K/uL (4.8-10.8)
[2017-04-11 10:21] LABS: ANION GAP 6 (5-15); CALCIUM 8.4 mg/dL (8.4-11.0); CHLORIDE 110 mmol/L (98-107); CREATININE 0.74 mg/dL (0.55-1.30); GLUCOSE 168 mg/dL (70-99); POTASSIUM 3.5 mmol/L (3.5-5.1); SODIUM SERUM 144 mmol/L (136-145); UREA NITROGEN, BLOOD 6 mg/dL (8-21)
[2017-04-11 10:26] LABS: ALANINE AMINOTRANSFERASE 13 U/L (12-78); ALBUMIN 2.2 g/dL (3.4-4.8); ASPARTATE AMINOTRANSFERASE 18 U/L (10-37); TOTAL BILIRUBIN 0.2 mg/dL (0.0-1.0)
[2017-04-11] MEDS ORDERED: IOHEXOL 0 ML IV ONE (17:37)
[2017-04-11] MEDS ORDERED: LR 1,000 ML IV SCH (17:40)
[2017-04-11] MEDS ORDERED: HYDROmorphone 2 MG/ML VIAL IVP PRN ×2 (17:45)
[2017-04-11] MEDS ORDERED: HYDROmorphone 1 MG INJ. 1 MG/ML AMPUL IVP PRN (17:45)
[2017-04-11] MEDS ORDERED: ePHEDrine sulfate 50 MG/ML VIAL IVP PRN (17:45)
[2017-04-11] MEDS ORDERED: HYDROmorphone 1 MG INJ. 1 MG/ML AMPUL ONE (18:58)
[2017-04-11] MEDS ORDERED: HYDROcodone/ACETAMIN 5-325 MG TAB (NORCO/ VICODIN) PO PRN (19:00)
[2017-04-11] MEDS ORDERED: ROCURONIUM BROMIDE 10 MG/ML (ZEMURON) IV ONE (20:07)
[2017-04-11] MEDS ORDERED: GLYCOPYRROLATE 0.2 MG/ML VIAL IJ ONE (20:07)
[2017-04-11] MEDS ORDERED: MIDAZOLAM HCL 5 MG/ML VIAL (VERSED) IV ONE (20:07)
[2017-04-11] MEDS ORDERED: KETOROLAC TROMETHAMINE 30 MG VIAL IVP ONE (20:07)
[2017-04-11] MEDS ORDERED: BUPIVACAINE /EPINEPHRINE/PF 0.5% 30 ML VIAL INJ ONE (20:07)
[2017-04-11] MEDS ORDERED: PROPOFOL 200MG/ 20ML VIAL (DIPRIVAN) IV ONE (20:07)
[2017-04-11] MEDS ORDERED: SEVOFLURANE 15 MIN GAS INH ONE (20:07)
[2017-04-11] MEDS ORDERED: fentaNYL CITRATE/PF 100 MCG/2 ML AMP IVP ONE (20:07)
[2017-04-11] MEDS ORDERED: NEOSTIGMINE METHYLSULFATE 1 MG/ML, 10 ML VIAL IVP ONE (20:07)
[2017-04-11] MEDS ORDERED: LR 1,000 ML IV.SOLN IV ONE (20:07)
[2017-04-11] MEDS ORDERED: NS 1000 ML BAG IV ONE (20:07)
[2017-04-11] MEDS ORDERED: NS IRRIG SOLN 1000 ML IR ONE (20:07)
[2017-04-11] MEDS ORDERED: ONDANSETRON HCL 4 MG/2 ML VIAL IVP ONE (20:07)
[2017-04-11] MEDS: LEVOFLOXACIN 500 MG/D5W 100 ML IV SCH (20:49)
[2017-04-12] VITALS (7 sets, daily range): BP systolic 131–160
[2017-04-12] MEDS: ALBUTEROL SULFATE 0.083% 2.5 MG/3 ML VIAL.NEB INH SCH ×3 (01:04→13:33)
[2017-04-12 06:50] LABS: ALANINE AMINOTRANSFERASE 26 U/L (12-78); ALBUMIN 2.3 g/dL (3.4-4.8); ANION GAP 6 (5-15); ASPARTATE AMINOTRANSFERASE 62 U/L (10-37); CALCIUM 8.3 mg/dL (8.4-11.0); CHLORIDE 109 mmol/L (98-107); CREATININE 0.96 mg/dL (0.55-1.30); GLUCOSE 233 mg/dL (70-99); SODIUM SERUM 142 mmol/L (136-145); TOTAL BILIRUBIN 0.2 mg/dL (0.0-1.0); UREA NITROGEN, BLOOD 9 mg/dL (8-21)
[2017-04-12] MEDS: cloNIDine HCL 0.1 MG TABLET PO PRN ×2 (08:40→19:55)
[2017-04-12] MEDS: D5NS 1,000 ML IV SCH (08:40)
[2017-04-12] MEDS: PANTOPRAZOLE SODIUM 40 MG TAB PO SCH (08:41)
[2017-04-12] MEDS ORDERED: D5/0.45 NS 1,000 ML IV SCH (13:15)
== END 2017-04-12 20:08 | DRG 981 ==
LOC: SED 18:08 → SMU 22:14 → STU 04-06 12:48 → SMU 04-07 15:20
PROC: 0DB98ZX Excision of Duodenum, Via Natural or Artificial Opening Endoscopic, Diagnostic (ICD-10-PCS; 2017-04-09)
PROC: 0DB68ZX Excision of Stomach, Via Natural or Artificial Opening Endoscopic, Diagnostic (ICD-10-PCS; 2017-04-09)
PROC: 0DNH4ZZ Release Cecum, Percutaneous Endoscopic Approach (ICD-10-PCS; 2017-04-11)
PROC: 0DNS4ZZ (ICD-10-PCS; 2017-04-11)
PROC: 0FT44ZZ Resection of Gallbladder, Percutaneous Endoscopic Approach (ICD-10-PCS; principal; 2017-04-11 17:30)
DX: J18.9 Pneumonia, unspecified organism (principal); E43 Unspecified severe protein-calorie malnutrition; I27.2 Other secondary pulmonary hypertension; F03.90 Unspecified dementia, unspecified severity, without behavioral disturbance, psychotic disturbance, mood disturbance, and anxiety; K80.10 Calculus of gallbladder with chronic cholecystitis without obstruction; Z68.1 Body mass index [BMI] 19.9 or less, adult; E88.09 Other disorders of plasma-protein metabolism, not elsewhere classified; E11.9 Type 2 diabetes mellitus without complications; K29.70 Gastritis, unspecified, without bleeding; I35.1 Nonrheumatic aortic (valve) insufficiency; K52.9 Noninfective gastroenteritis and colitis, unspecified; E03.9 Hypothyroidism, unspecified; E87.6 Hypokalemia; I10 Essential (primary) hypertension; I25.10 Atherosclerotic heart disease of native coronary artery without angina pectoris; J45.909 Unspecified asthma, uncomplicated; K44.9 Diaphragmatic hernia without obstruction or gangrene; K57.90 Diverticulosis of intestine, part unspecified, without perforation or abscess without bleeding; K66.0 Peritoneal adhesions (postprocedural) (postinfection); K82.8 Other specified diseases of gallbladder; Z86.73 Personal history of transient ischemic attack (TIA), and cerebral infarction without residual deficits; Z87.440 Personal history of urinary (tract) infections; Z87.442 Personal history of urinary calculi; Z95.5 Presence of coronary angioplasty implant and graft
CPT/HCPCS: 36415; 43239; 71010; 80053; 81000-TC; 83605; 83690-TC; 85025; 85610-TC; 86886; 86900; 86901; 87040-TC; 87081; 88304; 88305; 88312; 88313; 92610-GN; 93005; 93306; 94640; 94760; 96361; 96365; 96367; 97116-GP; 99285; C1727; J0456; J0696; J1170; J1885; J1956; J2250; J2405; J2543; J2704; J2710; J3010; J3370; J3480; J3490; J7030; J7040; J7042; J7050; J7060; J7120; Q2037; Q9967